=== PATIENT | female | born 1955 | race Caucasian/White ===

== ENCOUNTER 2025-02-20 07:52 | Day surgery (SDC) | payer MEDICARE ==
[~2025-02-20] VITALS: Ht 170.2 cm; Wt 99.2 kg
[2025-02-20] VITALS (10 sets, daily range): BP systolic 109–147; BP diastolic 54–86; PULSE 62–75; RESP 10–17; TEMP 98; O2SAT 91–97
[2025-02-20] MEDS ORDERED: LEVO125T8 PO (08:37)
[2025-02-20] MEDS ORDERED: ESTR1TAB28 PO (08:37)
[2025-02-20] MEDS ORDERED: ASPI-103 PO (08:37)
[2025-02-20] MEDS ORDERED: LOSA1TAB41 PO (08:37)
[2025-02-20] MEDS ORDERED: METO-395 PO (08:37)
[2025-02-20] MEDS ORDERED: EVOL140P3 SQ (08:37)
[2025-02-20 09:06] LABS: BASOPHILS # (AUTO) 0.1 X10'3 (0-0.2); BASOPHILS % (AUTO) 0.8 % (0-1); EOSINOPHILS # (AUTO) 0.2 X10'3 (0-0.9); EOSINOPHILS % (AUTO) 2.3 % (0-6); HEMATOCRIT 36.3 % (35.0-45.0); HEMOGLOBIN 12.1 g/dl (12.0-16.0); LYMPHOCYTES % (AUTO) 34.4 % (21-51); MEAN CORPUSCULAR HEMOGLOBIN 28.9 PG (27.0-31.0); MEAN CORPUSCULAR HGB CONC 33.3 g/dL (33.0-36.5); MEAN CORPUSCULAR VOLUME 86.9 FL (78-98); MEAN PLATELET VOLUME 7.7 FL (7.4-10.4); MONOCYTES # (AUTO) 0.6 X10'3 (0-0.9); MONOCYTES % (AUTO) 6.4 % (2-12); NEUTROPHILS # (AUTO) 4.8 X10'3 (1.8-7.7); NEUTROPHILS % (AUTO) 56.1 % (42-75); PLATELET COUNT 153 X10'3 (140-440); RED BLOOD COUNT 4.18 X10'6 (4.20-5.60); RED CELL DISTRIBUTION WIDTH 14.7 % (11.5-14.5); WHITE BLOOD COUNT 8.6 X10'3 (4.5-11.0)
--- NOTE | 2025-02-20 09:09 | ELECTROCARDIOGRAPH REPORT ---
[facility] Test Date: 2025-02-20 Test Time: 09:07:48 Pat Name: EDGAR WEBB Department: [facility] Patient ID: [id number] Room: Gender: F Patient Access Director: [place] : 1955 Requested By: LUANA STYLES Order Number: [id number] Reading MD: Dr. PIEDAD Layne Measurements Intervals Marks Rate: 72 P: 70 AZ: 125 QRS: 91 QRSD: 95 T: 108 QT: 421 QTc: 461 Interpretive Statements Sinus rhythm Right axis deviation Nonspecific T abnrm, anterolateral leads Electronically Signed On 02-20-2025 19:49:[address] PIEDAD Layne Please click the below link to view image of tracing.
[2025-02-20 09:17] LABS: ALBUMIN 3.3 G/DL (3.4-5.0); CALCIUM 8.6 MG/DL (8.5-10.1); MAGNESIUM 1.9 MG/DL (1.5-2.4); TOTAL CARBON DIOXIDE 29.3 MMOL/L (24-32)
[2025-02-20 09:19] LABS: PROTHROMBIN TIME 10.2 SECONDS (9.0-12.0)
[2025-02-20 09:21] LABS: ANION GAP 9 (8-16); BLOOD UREA NITROGEN 15 MG/DL (7-18); CHLORIDE 105 MMOL/L (99-107); CREATININE 0.75 MG/DL (0.40-0.90); GLUCOSE 103 MG/DL (70-104); POTASSIUM 4.3 MMOL/L (3.5-5.1); SODIUM 143 MMOL/L (135-145); eCRCL 68 ML/MIN; eGFR 76 ML/MIN
[2025-02-20] MEDS: diphenhydrAMINE 25mg capsule PO PRN (09:59)
[2025-02-20] MEDS: normal saline 1,000 ML IV SCH (10:00)
[2025-02-20] MEDS: sodium bicarbonate 1meq/ml syr 150 ML in dextrose 5%-water 1,000 ML IV ONE (10:00)
[2025-02-20] MEDS ORDERED: iohexol 350 MG/ML 50ML vial IV ONE (10:41)
[2025-02-20] MEDS ORDERED: iohexol 350MG/ML 100ml bottle IV ONE (10:41)
[2025-02-20] MEDS ORDERED: verapamil 2.5 mg/ml inj IV ONE (10:41)
[2025-02-20] MEDS ORDERED: LIDOcaine 1% (10mg/ml) 2ml vial ONE ×2 (10:41→11:42)
[2025-02-20] MEDS ORDERED: midazolam 1 mg/ML 2ml injection ONE ×3 (10:42→10:54)
[2025-02-20] MEDS ORDERED: fentaNYL/PF 50MCG/1 ML 2ML syringe ONE (10:42)
[2025-02-20] MEDS ORDERED: heparin 1,000unit/ml 10ml vial 10 ML ONE (10:42)
[2025-02-20] MEDS ORDERED: nitroGLYCERIN 500mcg/5mL D5W 5 ML IV ONE (10:42)
[2025-02-20] MEDS ORDERED: HYDROmorphone 1 mg/ml syringe ONE (11:41)
--- NOTE | 2025-02-20 13:58 | CARDIOLOGY REPORT ---
DATE OF SERVICE: 02/20/2025 DICTATING PHYSICIAN: LUANA STYLES DO CARDIAC CATHETERIZATION REPORT REFERRING PHYSICIAN: Quin Harrington MD. CLINICAL HISTORY: This 69-year-old woman is status post aortic and mitral valve replacement approximately 4 years ago. Recent transthoracic echocardiography has demonstrated very severe prosthetic aortic stenosis. The patient also had a transesophageal echocardiogram earlier this morning. That study provided a clear view of both valves. The aortic valve is indeed very severely stenotic with virtually no leaflet opening. The mitral valve is functioning entirely normally with very normal leaflet motion, but the orifice of this valve was unusually small. Findings otherwise noted on the study included LVH with excellent systolic function. There was also trivial tricuspid regurgitation. Because of plans to replace the aortic valve, right and left heart catheterization were ordered. PROCEDURES PERFORMED: * Selective coronary arteriography. * A 60-minute of conscious sedation supervision. DESCRIPTION OF PROCEDURE: The patient was sedated with fentanyl and Versed. She was then prepared and draped in the usual manner. The right radial area was infiltrated with 1% lidocaine using a micropuncture set and a Seldinger technique. A 6-Malian sheath was placed in the radial artery, 200 mcg of nitroglycerin and 2.5 mg of verapamil were directly injected into the radial artery. The patient had a previously placed #18 IV cath in the right arm cephalic vein. Using a 0.035 guidewire, a 6-Malian sheath was placed in this vein, 5000 units of heparin were then given. Using the antecubital vein sheath, a 6-Malian [place]-Stanton catheter was easily passed into the right heart. Pressure measurements were obtained in the right atrium, right ventricle, pulmonary artery, and in the wedge position. Cardiac output was determined using a thermal dilution technique. CORONARY ARTERIOGRAPHY: The coronary arteriograms were performed using a 6-Malian Kimny catheter. The radial sheath was removed and Vasc band was applied. Direct pressure was applied to the venous access site until hemostasis was achieved. RESULTS: HEMODYNAMIC DATA: The mean right atrial pressure was 18 mmHg. Right ventricular pressure was 47/15 mmHg. Pulmonary arterial pressure was 49/20 mmHg. Cardiac output by thermal dilution technique was 4.84 liters per minute. CORONARY ARTERIOGRAPHY: The coronary arteriograms were technically satisfactory. The patient had a codominant system. LEFT MAIN CORONARY ARTERY: The left main was a large unobstructed vessel bifurcating into left anterior descending and circumflex coronary arteries. LEFT ANTERIOR DESCENDING CORONARY ARTERY: The LAD was a [id number] transapical vessel with a large diagonal taking its origin from the mid vessel. The origin of the diagonal was narrowed by about 50%. There was no obstructive disease in the main stem LAD. CIRCUMFLEX CORONARY ARTERY: The circumflex was a large main stem vessel. There was a tiny, very proximal first marginal, a small to medium-sized second marginal, a large bifurcated first posterolateral and a very small second posterolateral branch. There were no obstructive lesions in the circumflex coronary artery. RIGHT CORONARY ARTERY: The right coronary was a medium-sized main stem vessel. There was a small to medium-sized posterior descending branch and 2 very small caliber posterolateral branches. There were no obstructive lesions in the right coronary artery. CONCLUSIONS: * Moderately elevated right heart pressures. The PA pressure was 49/20 mmHg. Cardiac output by thermal dilution technique was 4.84 liters per minute. * Two-dimensional echocardiography demonstrated mild to moderate LVH and very good systolic LV function with an LVEF estimated to be 60% or greater. * Left heart catheterization and left ventriculography were not performed because the valve was very, very stenotic in appearance on transesophageal echocardiogram. TONE, also demonstrated normal function of the prosthetic mitral valve with completely normal leaflet motion; however, the orifice of this valve was unusually small. * 50% ostial LAD diagonal; otherwise, no significant obstructive coronary artery disease. RECOMMENDATIONS: To proceed with planned aortic valve replacement. LUANA STYLES DO TID: [id number] RECEIPT: [id number] SAMUEL JEFF
--- NOTE | 2025-02-21 10:40 | CARDIOLOGY REPORT ---
APPROVED REPORT EXAM: Limited Transesophageal echocardiogram with color flow Doppler. Patient Location: [facility] SALES REPRESENTATIVE Blood Pressure: 121/68 mmHg Heart Rate: 71 bpm Rhythm: NSR Indications Evaluate Bioprosthetic Aortic Valve Evaluate Bioprosthetic Mitral Valve [employer]BER [employer]ITY SYSTEMS ENGINEER: Yara Wells MD No Previous ECHO LEFT VENTRICLE Moderate LVH with normal systolic function ATRIA Left atrial appendage is visualized in multiple planes and appears normal without debris. Pulmonary v ein identified and isolated by 2D and color Doppler. AORTIC VALVE Bioprosthetic aortic valve is present, well seated and appears VERY stenotic. Color flow alaising in the ascending aorta suggests increased LVOT velocities. Paravalvular leak noted at the 4 o'clock PSAX TONE position. MITRAL VALVE VERY SMALL bioprosthetic mitral valve is present, well seated and functioning normally. No stenosis. Trace regurgitation. TRICUSPID VALVE Tricuspid valve is grossly normal in structure with trace regurgitation. PULMONIC VALVE Pulmonic valve is grossly normal in structure. GREAT VESSELS The aortic root is normal in size. PERICARDIUM Normal pericardium. No effusion.
== END 2025-02-20 15:50 | disposition home or self-care (01) ==
LOC: SSTAY O 07:52
PROVIDERS: ATTEND Internal Medicine Cardiovascular Disease
DX: I35.0 Nonrheumatic aortic (valve) stenosis (principal); I48.0 Paroxysmal atrial fibrillation; I25.118 Atherosclerotic heart disease of native coronary artery with other forms of angina pectoris; I34.2 Nonrheumatic mitral (valve) stenosis; E78.5 Hyperlipidemia, unspecified; I10 Essential (primary) hypertension; E03.9 Hypothyroidism, unspecified; Z88.8 Allergy status to other drugs, medicaments and biological substances; Z88.6 Allergy status to analgesic agent; Z90.710 Acquired absence of both cervix and uterus; Z98.890 Other specified postprocedural states; Z82.49 Family history of ischemic heart disease and other diseases of the circulatory system; Z82.5 Family history of asthma and other chronic lower respiratory diseases; Z95.4 Presence of other heart-valve replacement
CPT/HCPCS: 36415; 80048; 83735; 85025; 85610; 93005; 93312; 93325; 93456; 99152; 99153; A6258; A6402; C1751; C1894; J1171; J1644; J2003; J2250; J3010; J3490; J7030; J7070; Q0163; Q9967; Z7610; A6449

== ENCOUNTER 2025-03-03 09:06 | Outpatient (CLI) | payer MEDICARE ==
[~2025-03-03 09:06] MED LIST: ASPI-103 PO; ESTR1TAB28 PO; EVOL140P3 SQ; IODIXANOL 320 MG/ML INFUS..BTL 100ML IV ONE; LEVO125T8 PO; LOSA1TAB41 PO; METO-395 PO
[2025-03-03 09:40] LABS: BASOPHILS % (AUTO) 0.5 % (0-1); EOSINOPHILS # (AUTO) 0.2 X10'3 (0-0.9); EOSINOPHILS % (AUTO) 2.6 % (0-6); HEMATOCRIT 36.9 % (35.0-45.0); HEMOGLOBIN 12.3 g/dl (12.0-16.0); LYMPHOCYTES # (AUTO) 3.2 X10'3 (1.1-4.8); MEAN CORPUSCULAR HEMOGLOBIN 28.9 PG (27.0-31.0); MEAN CORPUSCULAR HGB CONC 33.3 g/dL (33.0-36.5); MEAN CORPUSCULAR VOLUME 86.7 FL (78-98); MEAN PLATELET VOLUME 7.5 FL (7.4-10.4); MONOCYTES # (AUTO) 0.7 X10'3 (0-0.9); MONOCYTES % (AUTO) 7.9 % (2-12); PLATELET COUNT 182 X10'3 (140-440); RED BLOOD COUNT 4.26 X10'6 (4.20-5.60); RED CELL DISTRIBUTION WIDTH 14.6 % (11.5-14.5); WHITE BLOOD COUNT 9.3 X10'3 (4.5-11.0)
[2025-03-03 09:56] LABS: PROTHROMBIN TIME 10.4 SECONDS (9.0-12.0)
[2025-03-03 10:01] LABS: APTT 27 SECONDS (22-32)
[2025-03-03 10:19] LABS: ALANINE AMINOTRANSFERASE 28 U/L (12-78); ALBUMIN 3.5 G/DL (3.4-5.0); ALBUMIN/GLOBULIN RATIO 1.1 (1.1-1.5); ALKALINE PHOSPHATASE 83 IU/L (46-116); ANION GAP 6 (8-16); ASPARTATE AMINO TRANSFERASE 20 U/L (10-37); BILIRUBIN,TOTAL 0.4 MG/DL (0.1-1.0); BLOOD UREA NITROGEN 17 MG/DL (7-18); BUN/CREATININE RATIO 20.5 (10.0-20.0); CALCIUM 9.1 MG/DL (8.5-10.1); CHLORIDE 105 MMOL/L (99-107); CREATININE 0.83 MG/DL (0.40-0.90); GLUCOSE 99 MG/DL (70-104); POTASSIUM 4.1 MMOL/L (3.5-5.1); PRO BRAIN NATRIURETIC PEPTIDE 480 PG/ML (0-125); SODIUM 141 MMOL/L (135-145); TOTAL CARBON DIOXIDE 29.9 MMOL/L (24-32); TOTAL PROTEIN 6.8 G/DL (6.4-8.2); eGFR 68 ML/MIN
--- NOTE | 2025-03-03 10:32 | RADIOLOGY REPORT ---
DI CHEST,TWO VIEWS, HISTORY: AV STENOSIS,SOB,CAROTID STENOSIS COMPARISON: None None TECHNICAL DATA: 2 view of the chest was obtained. FINDINGS: Lines and tubes: None Cardiomediastinal silhouette: normal Pulmonary vasculature: normal Lung expansion: normal Lung airspace: normal Lung interstitium: normal Pleura: normal Pneumothorax: no Bones: Unremarkable Other: Sternotomy wires in a prosthetic valve is seen. IMPRESSION: No acute intrathoracic abnormality.
--- NOTE | 2025-03-04 15:29 | RADIOLOGY REPORT ---
Procedure: CT CTA TAVR Reason for study/Clinical History: Chest pain, evaluate for dissection. Comparison Study: None Exam Date: 03/03/2025 12:21 PM TECHNIQUE: Multiplanar reformatted images were generated from volumetric data acquired on a multidetector [facility]. Cardiac gating was utilized. Arterial phase images were obtained through the chest, abdomen and pelvis following intravenous administration of contrast material. 148 mL visipaque [address] dose reduction techniques were utilized. 3-D reconstructions were performed on an independent work station. Radiation Dose Information: CT Dose: CTDI volume is 65 mGy. Dose-length product is 2616 mGy*cm FINDINGS: Vascular: Aortic measurements: Aortic annulus: 25 x 24.1 mm Sinus of valsalva: right cusp 30.5 mm, left cusp 30.6 mm, non-coronary cusp 30.2 mm Right coronary distance: 11.6 Left coronary distance: 8.91 ST junction 23.9 mm Ascending aorta 32.6 mm Aortic arch 25.3 mm Descending aorta 23 mm Aortic hiatus 21.9 mm Upper abdominal aorta 18.7 mm Minimal abdominal aorta 9.67 mm Right common iliac 7.42 mm, tortuosity index 1.04 Left common iliac 5.07 mm, tortuosity index 1.06 There is normal caliber of aorta. No aortic dissection. Aortic arch anatomy is conventional. There is conventional coronary artery anatomy. Scattered calcified atherosclerotic plaque. No central pulmonary embolism. There is normal dimension of the main pulmonary artery. Heart is normal. There are no intracardiac filling defects. No pericardial effusion. Mediastinum: Mediastinal lymphadenopathy with largest lymph node measuring up to 14 mm in short axis. . Lungs: Mild patchy ground-glass opacities in both lungs. Atelectasis and scarring in the lung bases. Pleura: No effusion or pneumothorax. Chest wall: No acute abnormality. Abdomen and Pelvis: Liver: Normal in appearance. Gallbladder: Normal in appearance. Spleen: Enlarged Pancreas: Normal in appearance. Adrenals: Normal in appearance. Kidneys: Normal in appearance. Bowel: Normal in appearance. Peritoneum: No free air or free fluid. Lymph nodes: No lymphadenopathy by CT size criteria. Pelvic structures: No pelvic mass. Bones: Normal in appearance. IMPRESSION: 1. TAVR planning with vascular measurements as described above. 2. Mediastinal lymphadenopathy. Splenomegaly. 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 Clinical correlation and continued follow-up is recommended. HS:Y
--- NOTE | 2025-03-04 17:40 | CARDIOLOGY REPORT ---
APPROVED REPORT EXAM: Limited 2D, Doppler, and color-flow Echocardiogram. Patient Location: OUT-PATIENT Heart Rate: 74 bpm Rhythm: SINUS Indications PROSTHETIC AORTIC VALVE STENOSIS 31 MM LEE EPIC MITRAL VALVE REPLACEMENT - 11/12/20 23 MM LEE TRIFECTA AORTIC VALVE REPLACEMENT - 11/12/20 Director Of Donor Relations: Dennis Harrington MD Previous echo: 02/20/25 [facility] (EF not reported, very stenotic AVR, PVL at 4 o'clock SAX TONE, small biopr osthetic MV, no stenosis, trace MR, trace TR) 2D Dimensions RVDd 3.1 cm IVSd 1.2 (0.7-1.1cm) LVDd 4.3 cm PWd 1.2 (0.7-1.1cm) IVSs 1.3 (0.8-1.2cm) LVDs 2.7 (2.5-4.0cm) PWs 1.4 (0.8-1.2cm) LVOT Diameter 1.99 (1.8-2.4cm) LVEF(%) 65.0 (>50%) M-Mode Dimensions Left Atrium(MM) 3.98 (2.5-4.0cm) Aortic Root 1.79 (2.2-3.7cm) Aortic Valve AoV Peak Lisandro. 431.3 cm/s AoV VTI 110.5 cm AO Peak GR. 74.5 mmHg AO Mean GR. 48 mmHg LVOT VTI 25.58 cm LVOT Peak Lisandro. 103.2 cm/s BETTY (VMAX) 0.74 cm2 BETTY (VTI) 0.72 cm2 Mitral Valve MV Peak Gr. 13 mmHg MV Mean Gr. 4 mmHg MV VMean92.7 cm/sMVA VTI2.13 cm2 MV VTI37.2 cm Tricuspid Valve TR P. Velocity 307 cm/s RAP ESTIMATE 10 mmHg TR Peak Gr. 38 mmHg RVSP 48 mmHg LEFT VENTRICLE Normal LV size and function. Mild concentric hypertrophy. LVEF is 60-65%. RIGHT VENTRICLE RV is mildly dilated with normal systolic function. RVSP is estimated at 48 mmHg. ATRIA LA appears moderately dilated. AORTIC VALVE 23 mm Lee Trifect bioprosthetic AVR appears well seated but severely calcified with perivalvular l eak at 2 o'clock SAX TTE. BETTY is estimated at 0.72 cmsq. Peak / mean gradients of 74 / 48 mmHG. Peak velocity is measured at 4.31 m/sec. MITRAL VALVE 31 mm Lee Epic mitral valve replacement appears to be small, but well seated without perivalvular leak. Peak / mean gradients of 13 / 4 mmHg. Peak velocity is mreasured at 1.97 m/s. Trace regurgitati on. TRICUSPID VALVE TV appears structurally normal with mild regurgitation. PULMONIC VALVE Normal PV without stenosis, physiologic insufficiency. PERICARDIUM Normal pericardium. No effusion. Other Information Study Quality: Adequate Conclusion Normal LV size and function. Mild concentric hypertrophy. LVEF is 60-65%. RV is mildly dilated with normal systolic function. RVSP is estimated at 48 mmHg. LA appears moderately dilated. 23 mm Lee Trifect bioprosthetic AVR appears well seated but severely calcified with perivalvular l eak at 2 o'clock SAX TTE. BETTY is estimated at 0.72 cmsq. Peak / mean gradients of 74 / 48 mmHG. Pea k velocity is measured at 4.31 m/sec. 31 mm Lee Epic mitral valve replacement appears to be small, but well seated without perivalvular leak. Peak / mean gradients of 13 / 4 mmHg. Peak velocity is mreasured at 1.97 m/s. Trace regurgitati on. TV appears structurally normal with mild regurgitation. Normal pericardium. No effusion.
== END 2025-03-03 23:59 | disposition home or self-care (01) ==
LOC: RAD 09:06
PROVIDERS: ATTEND Internal Medicine Cardiovascular Disease
DX: I08.8 Other rheumatic multiple valve diseases (principal); I35.0 Nonrheumatic aortic (valve) stenosis; R06.02 Shortness of breath; I65.29 Occlusion and stenosis of unspecified carotid artery; Z95.3 Presence of xenogenic heart valve; R59.0 Localized enlarged lymph nodes
CPT/HCPCS: 36415; 71046; 71275; 74175; 75572; 80053; 83880; 85025; 85610; 85730; 93308; Q9967